=== PATIENT | male | born 1990 | race Two or more races ===

== ENCOUNTER 2018-08-21 22:48 | Inpatient (IN) | payer OTHER ==
[~2018-08-21] VITALS: Ht 182.9 cm; Wt 72.6 kg
--- NOTE | 2018-08-21 22:55 | NUR ---
PT BIBRA C/O EPIGASTRIC PAIN AND BILATERAL LOWER ABD PAIN. 04/13 THAT STARTED 1899. PT AAXO4. RESPIRATIONS EVEN AND UNLABORED. NAD NOTED. PT PUT ON THE MONITOR AND PULSE OX. PENDING EVAL FROM .
--- NOTE | 2018-08-21 23:24 | NUR ---
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
[2018-08-21 23:25] LABS: BASOPHILS # (AUTO) 0.1 /CMM (0.0-0.2); BASOPHILS % (AUTO) 0.7 % (0.0-2.0); EOSINOPHILS % (AUTO) 2.5 % (0.0-6.0); HEMATOCRIT 44 % (39-51); HEMOGLOBIN 14.9 g/dL (13.5-17.5); LYMPHOCYTES # (AUTO) 3.2 /CMM (0.8-4.8); LYMPHOCYTES % (AUTO) 25.6 % (20.0-44.0); MEAN CORPUSCULAR HGB CONC 34 g/dl (31.0-36.0); MEAN CORPUSCULAR VOLUME 87 fL (80-96); MONOCYTES # (AUTO) 1.1 /CMM (0.1-1.30); MONOCYTES % (AUTO) 8.6 % (2.0-12.0); NEUTROPHILS # (AUTO) 7.9 /CMM (1.8-8.9); NEUTROPHILS % (AUTO) 62.6 % (43.0-81.0); PLATELET COUNT (AUTO) 331 /CMM (150-450); RED BLOOD CELL COUNT(AUTO) 5.05 MIL/uL (4.5-6.0); WHITE BLOOD COUNT (AUTO) 12.6 K/uL (4.3-11.0)
[2018-08-21 23:28] LABS: APPEARANCE,URINE CLEAR (CLEAR); BILIRUBIN,URINE NEGATIVE (NEGATIVE); BLOOD, URINE NEGATIVE Ery/uL (NEGATIVE); COLOR,URINE YELLOW (YELLOW); KETONES,URINE NEGATIVE (NEGATIVE); LEUKOCYTE ESTERASE ,URINE NEGATIVE (NEGATIVE); NITRITE, URINE NEGATIVE (NEGATIVE); PROTEIN,URINE NEGATIVE (NEGATIVE); UGLUCOSE NEGATIVE (NEGATIVE); UROBILINOGEN,URINE 0.2 EU/dL (0.2)
[2018-08-21 23:37] LABS: CALCIUM, SERUM 9.5 mg/dL (8.5-10.1); CARBON DIOXIDE 28 mmol/L (21-32); CHLORIDE 104 mmol/L (98-107); CREATININE 1.2 mg/dL (0.6-1.3); GLUCOSE 97 mg/dL (74-106); POTASSIUM 3.9 mmol/L (3.5-5.1); SODIUM SERUM 141 mmol/L (136-145); UREA NITROGEN, BLOOD 20 mg/dL (7-18)
[2018-08-21] MEDS ORDERED: IV NS 0.9% 250 ML IV ONE (23:44)
[2018-08-21] MEDS ORDERED: IOHEXOL-300 100 ML VIAL IV ONE (23:44)
[2018-08-21] MEDS ORDERED: CT SWABBABLE VALVE TRANS SET 1 EA INFUS.SET MC ONE (23:44)
[2018-08-21 23:50] LABS: ALANINE AMINOTRANSFERASE 73 U/L (12-78); ALBUMIN 4.3 g/dL (3.4-5.0); ALKALINE PHOSPHATASE 86 U/L (46-116); ASPARTATE AMINOTRANSFERASE 26 U/L (15-37); BILIRUBIN,DIRECT 0.1 mg/dL (0.0-0.2); BILIRUBIN,TOTAL 0.3 mg/dL (0.2-1.0); LIPASE 104 U/L (73-393); TOTAL PROTEIN, SERUM 7.9 g/dL (6.4-8.2)
--- NOTE | 2018-08-22 00:12 | NUR ---
XRAY AT BEDSIDE.
--- NOTE | 2018-08-22 00:23 | NUR ---
PT TAKEN TO CT.
--- NOTE | 2018-08-22 00:36 | NUR ---
PT BACK FROM CT. PT PUT ON THE MONITOR. CALL LIGHT WITHIN REACH.
--- NOTE | 2018-08-22 01:30 | NUR ---
Patient is resting comfortably in bed. VSS. NAD NOTED. CALL LIGHT WITHIN REACH.
--- NOTE | 2018-08-22 01:42 | NUR ---
PT COMPLAINING OF "RACING THOUGHTS," WANTS SOMETHING FOR ANXIETY. ER MD NOTIFIED.
[2018-08-22] MEDS ORDERED: LORAZEPAM 1 MG TABLET ONE (01:48)
[2018-08-22] MEDS ORDERED: LORAZEPAM 1 MG TABLET PO ONE (02:00)
--- NOTE | 2018-08-22 02:32 | NUR ---
PER DR. BAXTER "DRAPERY CUTTER GURWINDER STATES WE CAN GO AHEAD AND ADMIT PT HERE".
--- NOTE | 2018-08-22 02:43 | NUR ---
REPORT GIVEN TO MARÍA LAGOS FOR ROSAR[facility].
[2018-08-22 03:30] VITALS: BP 120/72
[2018-08-22] MEDS ORDERED: MAGNESIUM HYDROXIDE 30 ML UDC PO PRN (03:30)
[2018-08-22] MEDS ORDERED: ACETAMINOPHEN 325 MG TABLET PO PRN (03:30)
[2018-08-22] MEDS ORDERED: ONDANSETRON HCL/PF 4 MG/2 ML VIAL IVP PRN (03:30)
[2018-08-22] MEDS ORDERED: MAG HYDROX/AL HYDROX/SIMETH 30 ML UDC PO PRN (03:30)
[2018-08-22] MEDS ORDERED: Z GUARD REMEDY 2 OZ OINT TP PRN (03:30)
[2018-08-22] MEDS ORDERED: HYDROCODONE/APAP 5/325MG 1 EACH TABLET PO PRN (03:30)
[2018-08-22] MEDS ORDERED: RANI150C4 PO (03:47)
[2018-08-22] MEDS ORDERED: SERT50TA PO (03:47)
--- NOTE | 2018-08-22 03:49 | NUR ---
TELE/RN RECEIVE PATIENT FROM E.R. AT [facility] [employer], PATIENT WAS AWAKE, ALERT, ORIENTED, COMFORTABLE, NO DISTRESS NOTED, ADMISSION DONE PER PROTOCOL, REFUSED SKIN ASSESSMENT, PLAN OF CARE DISCUSSED, VERBALIZED UNDERSTANDING AND AGREEMENT, NPO STATUS PER CHEST PAIN DIAGNOSIS POLICY. WILL MONITOR.
[2018-08-22 04:00] VITALS: BP 125/70
[2018-08-22] MEDS ORDERED: ENOXAPARIN SODIUM 40 MG/0.4 ML DISP.SYRIN SQ ONE (04:30)
[2018-08-22] MEDS: HYDROCODONE/APAP 10/325MG 1 EA TABLET PO PRN ×2 (04:33→13:18)
--- NOTE | 2018-08-22 06:19 | NUR ---
TELE/RN PATIENT REFUSED BLOOD DRAW, EXPLAINED IMPORTANCE, VERBALIZED UNDERSTANDING BUT STILL REFUSED.
--- NOTE | 2018-08-22 06:34 | NUR ---
RN NOTES: APPROACHED BY PT AT THE NURSES STATION, ACCORDING TO PT, HE DOESN'T WANT ANY BLOOD DRAW TODAY, TOMORROW AND THE NEXT DAY. HE ADDED, THAT BLOOD DRAWN WAS PERFORMED YESTERDAY WHEN HE'S IN ER, AND THAT'S IT, HE WONT ALLOW BLOOD DRAW AGAIN. EXPLAINED THE IMPORTANCE OF COMPLIANCE, BUT PT IS FIRM WITH HIS DECISION. X RAY TECHNICIAN AWARE.
[2018-08-22 08:00] VITALS: BP 109/81
[2018-08-22] MEDS ORDERED: NAPR-1164 PO (15:57)
[2018-08-22 16:00] VITALS: BP 100/61
--- NOTE | 2018-08-22 16:45 | NUR ---
PT CLEARED BY [employer] MARKER AND MD FOR DISCHARGE HOME. PT A/OX4 ,AMBULATORY. BREATHING UNLABORED AND EVEN ON ROOM AIR , DENIES CHEST PAIN. DENIES ANY DISCOMFORT. PT REFUSED TO WAIT FOR PROPER DISCHARGE AND LEFT WITHOUT D/C PAPERS. SEEN BY SW AT BEDSIDE AND NOT WILLING GO BACK TO [facility] , WANTS TO GO HOME.DR. SMITH INFORMED BY RICKEY CURIEL AND HE AGREED TO D/C PT HOME AND TO CHANGED D/C ORDER TO HOME. WALKED OUT WITHOUT SHOES , WAS ENCOURAGED TO WEAR SHOES AND HE SAID HE HAS IT IN HIS BACKPACK AND STATED NOT YOUR BUSINESS. Addendum: 08/22/18 at 1831 by BRIDGET QUIÑONES RN FOUND PT SHOES IN THE COUNTER.
--- NOTE | 2018-08-22 18:00 | NUR ---
WILL KEEP SHOES IN CASE PT CAME BACK
--- NOTE | 2018-08-22 18:00 | NUR ---
IN THE CHART PHONE NUMBER THAT DOES NOT EXIST
[2018-08-23] MEDS ORDERED: ENOXAPARIN SODIUM 40 MG/0.4 ML DISP.SYRIN SQ SCH (09:00)
== END 2018-08-22 17:00 | disposition home or self-care (01) | DRG 203 ==
LOC: ER 22:50 → TELE 08-22 02:38 → MED 08-22 08:39
PROVIDERS: ADMIT Family Medicine; ATTEND Family Medicine
DX: M94.0 Chondrocostal junction syndrome [Tietze] (principal); N17.0 Acute kidney failure with tubular necrosis; K76.0 Fatty (change of) liver, not elsewhere classified; E66.9 Obesity, unspecified; F17.210 Nicotine dependence, cigarettes, uncomplicated; F43.10 Post-traumatic stress disorder, unspecified; G47.33 Obstructive sleep apnea (adult) (pediatric); D72.829 Elevated white blood cell count, unspecified; F31.9 Bipolar disorder, unspecified; F41.9 Anxiety disorder, unspecified; Z68.21 Body mass index [BMI] 21.0-21.9, adult
CPT/HCPCS: 36415; 71045-TC; 80048-TC; 80076-TC; 81000-TC; 83605-TC; 83690-TC; 84484-TC; 85025-TC; 85378-TC; 85730-TC; 87081-TC; 93307-TC; G0378; J1650; J7050; Q9967